=== PATIENT | female | born 1955 | race Caucasian/White ===

== ENCOUNTER 2017-09-25 10:06 | Emergency (ER) | payer BC ==
[2017-09-25] MEDS ORDERED: DEXAMETHASONE 10 MG/ML VIAL PO STA (10:50)
[2017-09-25] MEDS ORDERED: PENICILLIN G BENZATHINE 600,000 UNIT/ML SYRINGE IM STA (10:51)
[2017-09-25] MEDS ORDERED: PENICILLIN G BENZATHINE 600,000 UNIT/ML SYRINGE IM ONE (10:58)
[2017-09-25] MEDS ORDERED: DEXAMETHASONE 10 MG/ML VIAL ONE (10:58)
[2017-09-25] MEDS ORDERED: CHERRY SYRUP 10 ML UDC PO ONE (10:58)
--- NOTE | 2017-09-25 10:59 | ED Physician Documentation ---
History of Present Illness - Stated complaint Stated Complaint: EAR PX/ SWOLLEN LYMPH NODES - Chief complaint Chief Complaint: Heent - History obtained from History obtained from: Patient (Pt is here for evaluation of sinus congestion, sore throat, ear fullness and neck pain. all symptoms started a couple days ago and have worsened. No fevers, painful to swallow, no rash, white patches in the back of her throat, no cough, subjective fevers, no sick contacts.) Review of Systems Constitutional: reports: Fever (subjective). denies: Chills Eyes: denies: Loss of vision Ears: reports: Ear pain. denies: Drainage/discharge Nose: reports: Rhinorrhea / runny nose, Congestion, Sinus pressure / pain Throat: reports: Oral lesions / sores, Sore throat, Swollen tonsils Cardiac: denies: Chest pain / pressure, Palpitations Respiratory: denies: Cough GI: denies: Abdominal Pain, Nausea, Vomiting, Constipation, Diarrhea : denies: Dysuria, Frequency Skin: denies: Rash, Laceration (s) Neurologic: denies: Generalized weakness, Headache PD PAST MEDICAL HISTORY - Past Medical History Past Medical History: Yes GI: Crohn's disease - Past Surgical History Past Surgical History: Yes Ortho: Other - Present Medications Home Medications: Ambulatory Orders Medication Instructions Recorded Confirmed Asathioprine 09/25/17 - Allergies Allergies/Adverse Reactions: Allergies Allergy/AdvReac Type Severity Reaction Status Date / Time Sulfa (Sulfonamide Allergy Unknown Verified 09/25/17 10:14 Antibiotics) - Social History Does the pt smoke?: Yes Smoking Status: Current every day smoker Does the pt drink ETOH?: No Does the pt have substance abuse?: No Substance Use and Type: Marijuana - Immunizations Immunizations are current?: No PD ED PE NORMAL - Vitals Vital signs reviewed: Yes - General General: Alert and oriented X 3 - HEENT HEENT: Atraumatic, Moist mucous membranes. No: Ears normal (bilateral TMs bulging w/o redness), Pharynx benign (bilateral tonsilar exudate. ) - Neck Neck: Supple, no meningeal sign. No: No adenopathy (anterior cervical and submandibular LAD) - Cardiac Cardiac: RRR, No murmur - Respiratory Respiratory: No respiratory distress - Derm Derm: Normal color, No rash - Extremities Extremities: No deformity - Neuro Neuro: Alert and oriented X 3 - Psych Psych: Normal mood, Normal affect Results - Vitals Vitals: Vital Signs - 24 hr 09/25/17 10:12 Temperature 35.0 C L Heart Rate 60 Respiratory 18 Rate Blood Pressure 171/83 H O2 Saturation 99 Oxygen O2 Source Room air PD MEDICAL DECISION MAKING - ED course Complexity details: d/w patient ED course: Discussed symptoms with the patient. because of her hx and PE i offered treatment for strep and she agreed. She was given IM PCN here in the ER. also gave decadron in the ER. No need for IV fluids. She asked for pain medications but I told her that tylenol and motrin is what I would give. We discussed claritin and flonase and she stated that she did not want a rx and would just get them OTC. she was given return precautions. 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 Departure - Departure Disposition: 01 Home, Self Care Clinical Impression: Strep pharyngitis, Sore throat Condition: Good Instructions: ED Strep Pharyngitis Poss Follow-Up: Gadiel Goncalves MD [Primary Care Provider] - Comments: Return to the ER for any new or worsening symptoms.
[2017-09-25 11:22] VITALS: BP 130/79
== END 2017-09-25 11:18 | disposition home or self-care (01) ==
LOC: ED 10:06
DX: J02.0 Streptococcal pharyngitis (principal); K50.90 Crohn's disease, unspecified, without complications; F17.200 Nicotine dependence, unspecified, uncomplicated
CPT/HCPCS: 96372; 99283; A9270

== ENCOUNTER 2019-01-25 09:37 | Outpatient (CLI) | payer BC ==
[2019-01-25 17:22] LABS: BASOPHILS % (AUTO) 0.7 %; EOSINOPHILS # (AUTO) 0.1 10^3/uL (0.0-0.7); HGB - HEMOGLOBIN 13.4 g/dL (12.0-16.0); LYMPHOCYTES # (AUTO) 1.3 10^3/uL (1.5-3.5); LYMPHOCYTES % (AUTO) 20.9 %; MEAN CORPUSCULAR HEMOGLOBIN 29.6 pg (27.0-31.0); MEAN CORPUSCULAR HGB CONC 33.1 g/dL (32.0-36.0); MEAN CORPUSCULAR VOLUME 89.5 fL (81.0-99.0); MEAN PLATELET VOLUME 8.1 fL (7.9-10.8); MONOCYTES # (AUTO) 0.4 10^3/uL (0.0-1.0); MONOCYTES % (AUTO) 6.9 %; NEUTROPHILS # (AUTO) 4.5 10^3/uL (1.5-6.6); NEUTROPHILS % (AUTO) 70.5 %; PLT - PLATELET COUNT 252 10^3/uL (130-450); RED BLOOD COUNT 4.52 10^6/uL (4.20-5.40); WHITE BLOOD COUNT 6.4 x10^3/uL (4.8-10.8)
[2019-01-25 17:54] LABS: ALBUMIN 4.3 g/dL (3.2-5.5); ALBUMIN/GLOBULIN RATIO 1.5 (1.0-2.2); ALKALINE PHOSPHATASE 56 IU/L (42-121); ALT ALANINE AMINOTRANSFERASE 24 IU/L (10-60); AST ASPARTATE AMINOTRANSFERASE 21 IU/L (10-42); BILIRUBIN,TOTAL 0.7 mg/dL (0.2-1.0); BUN - BLOOD UREA NITROGEN 13 mg/dL (6-20); CALCIUM 9.3 mg/dL (8.5-10.3); CARBON DIOXIDE - CO2 22 mmol/L (21-32); CHLORIDE 106 mmol/L (101-111); CHOL/HDL RATIO 5.4 (<4.4); CHOLESTEROL 201 mg/dL; CREATININE 0.7 mg/dL (0.4-1.0); GFR - MDRD 85 (>89); GLUCOSE 114 mg/dL (70-100); HDL CHOLESTEROL 37 mg/dL; LDL CHOLESTEROL,CALCULATED 135 mg/dL; LDL/HDL RATIO 3.6 (<4.4); SODIUM 138 mmol/L (135-145); TOTAL PROTEIN 7.2 g/dL (6.7-8.2); VLDL CHOLESTEROL 29 mg/dL
[2019-01-25 18:24] LABS: HB2 TOTAL 14.6 g/dL; HEMOGLOBIN A1C 0.68 g/dL; HEMOGLOBIN A1C % 6.4 % (4.6-6.2)
== END 2019-01-25 09:38 | disposition home or self-care (01) ==
LOC: LAB.F 09:37
PROVIDERS: ATTEND Specialist
DX: I10 Essential (primary) hypertension (principal); Z12.11 Encounter for screening for malignant neoplasm of colon; Z13.6 Encounter for screening for cardiovascular disorders; Z13.1 Encounter for screening for diabetes mellitus
CPT/HCPCS: 36415; 80053; 80061; 83036; 83721; 85025

== ENCOUNTER 2019-02-01 11:53 | Outpatient (CLI) | payer BC ==
--- NOTE | 2019-02-02 09:24 | Mammography Report ---
Reason: SCREENING MAMMO Procedure Date: 02/01/2019 Accession Number: [id number] / [id number] Procedure: MGN - Screening Mammo Dig Bilat CPT Code: FULL RESULT: EXAM: Screening Mammo Dig Bilat DATE: 02/01/2019 12:37 PM CLINICAL HISTORY: Screening encounter. History of nulliparity. TECHNIQUE: Bilateral CC and MLO views were obtained. COMPARISON: 09/11/2016 through 02/16/2011. FINDINGS: The breasts demonstrate diffuse fatty replacement bilaterally. No suspicious masses, clustered microcalcifications, or regions of architectural distortion are identified. IMPRESSION: Negative examination RECOMMENDATION: Routine annual screening unless otherwise clinically indicated. BIRADS CATEGORY 1: Negative STANDARD QUALIFYING STATEMENTS: 1. This examination was reviewed with the aid of Computer-Aided Detection (CAD). 2. A negative or benign imaging report should not delay biopsy if clinically suspicious findings are present. Consider surgical consultation if warrented. More than 5% of cancers are not identified by imaging. 3. Dense breasts may obscure an underlying neoplasm.
== END 2019-02-01 11:54 | disposition home or self-care (01) ==
LOC: DI.N 11:53
DX: Z12.31 Encounter for screening mammogram for malignant neoplasm of breast (principal)
CPT/HCPCS: 77067

== ENCOUNTER 2019-02-03 13:00 | Outpatient (CLI) | payer BC ==
--- NOTE | 2019-02-06 11:09 | DEXA Report ---
Reason: POST MENOPAUSL Procedure Date: 02/03/2019 Accession Number: [id number] / [id number] Procedure: DEX - Dexa Spine and/or Hip CPT Code: FULL RESULT: EXAM: Dexa Spine and/or Hip DATE: 02/03/2019 1:42 PM CLINICAL HISTORY: POST MENOPAUSAL TECHNIQUE: Dual energy x-ray absorptiometry (DXA) was performed on a [employer] System. Regions measured are the AP Spine, femoral neck, and if needed forearm. COMPARISON: None. In accordance with the International Society for Clinical Densitometry (ISCD) guidelines, data from previous exams may be reanalyzed using current recommendations and techniques. This is done to allow a more accurate basis for comparison with the current study. FINDINGS: The data for the lumbar spine is as follows: BMD (g/cm/cm) T-SCORE Z-SCORE REGION L1 0.624 -4.2 -4.1 L2 0.910 -2.4 -2.3 L3 0.909 -2.4 -2.3 L4 0.886 -2.6 -2.5 TOTAL 0.843 -2.8 -2.7 NOTE: All evaluable vertebrae are used for classification The data for the hip is as follows: BMD (g/cm/cm) T-SCORE Z-SCORE REGION Neck 0.847 -1.4 -0.8 TOTAL 0.845 -1.3 -1.1 NOTE: The femoral neck or total proximal femur, whichever is lowest, is used for classification. IMPRESSION: THE WHO CLASSIFICATION BASED ON THE INTERNATIONAL REFERENCE STANDARD IS OSTEOPOROSIS. THE FRACTURE RISK IS HIGH. RECOMMENDATION: Patients with diagnosis of osteoporosis or osteopenia should have regular bone mineral density assessment. For those eligible for Medicare, routine testing is allowed once every 2 years. Testing frequency can be increased for patients who have rapidly progressing disease or for those who are receiving medical therapy to restore bone mass. COMMENT: World Health Organization (WHO) definitions for osteoporosis and osteopenia: NORMAL BMD: T-score at -1.0 or higher, fracture risk is low OSTEOPENIA BMD: T-score between -1.0 and -2.5, fracture risk is increased. OSTEOPOROSIS BMD: T-score at -2.5 or lower, fracture risk is high. National Osteoporosis Foundation recommends: 1. Obtain adequate dietary calcium (at least 1200 mg per day) and vitamin D (400-800 international units per day). 2. Participate, as appropriate, in regular weightbearing and muscle-strengthening exercise. 3. Avoid tobacco use and reduce alcohol and caffeine intake. 4. For more detailed information see the website at www.NOF.org.
== END 2019-02-03 13:01 | disposition home or self-care (01) ==
LOC: DI 13:00
PROVIDERS: ATTEND Specialist
DX: Z13.820 Encounter for screening for osteoporosis (principal); M81.0 Age-related osteoporosis without current pathological fracture
CPT/HCPCS: 77080

== ENCOUNTER 2019-05-22 09:40 | Outpatient (CLI) | payer BC ==
[2019-05-24 23:01] LABS: ALBUMIN 4.3 g/dL (3.8-4.8); ALPHA 1 GLOBULIN 0.3 g/dL (0.2-0.3); ALPHA 2 GLOBULIN 0.8 g/dL (0.5-0.9); BETA 1 GLOBULIN 0.4 g/dL (0.4-0.6); BETA 2 GLOBULIN 0.4 g/dL (0.2-0.5); GAMMA GLOBULIN 0.7 g/dL (0.8-1.7)
== END 2019-05-22 09:41 | disposition home or self-care (01) ==
LOC: LAB.S 09:40
PROVIDERS: ATTEND Internal Medicine Rheumatology
DX: E55.9 Vitamin D deficiency, unspecified (principal); Z87.81 Personal history of (healed) traumatic fracture
CPT/HCPCS: 36415; 83970; 84155; 84165

== ENCOUNTER 2019-06-14 09:37 | Outpatient (CLI) | payer BC ==
[2019-06-15 11:23] LABS: HEPATITIS C ANTIBODY NON-REACTIVE (NON-REACTIVE)
[2019-06-15 11:24] LABS: HEPATITIS B SURFACE ANTIGEN NON-REACTIVE (NON-REACTIVE)
== END 2019-06-14 09:38 | disposition home or self-care (01) ==
LOC: LAB 09:37
PROVIDERS: ATTEND Internal Medicine Gastroenterology
DX: K50.80 Crohn's disease of both small and large intestine without complications (principal)
CPT/HCPCS: 36415; 81599; 86480; 86803; 87340

== ENCOUNTER 2019-08-08 12:19 | Outpatient (CLI) | payer BC | END 2019-08-08 12:20 | disposition home or self-care (01) | LOC: LAB 12:19 | PROVIDERS: ATTEND Internal Medicine Rheumatology | DX: M81.0 Age-related osteoporosis without current pathological fracture (principal); Z87.81 Personal history of (healed) traumatic fracture; E55.9 Vitamin D deficiency, unspecified | CPT/HCPCS: 36415; 82306 ==

== ENCOUNTER 2020-01-15 08:00 | Outpatient (CLI) | payer BC | END 2020-01-15 08:01 | disposition home or self-care (01) | LOC: LAB.R 08:00 | PROVIDERS: ATTEND Internal Medicine Gastroenterology | DX: K50.80 Crohn's disease of both small and large intestine without complications (principal); R19.7 Diarrhea, unspecified | CPT/HCPCS: 83993 ==

== ENCOUNTER 2020-01-15 12:01 | Outpatient (CLI) | payer BC ==
[2020-01-15 12:24] LABS: BASOPHILS % (AUTO) 0.4 %; EOSINOPHILS # (AUTO) 0.1 10^3/uL (0.0-0.7); EOSINOPHILS % (AUTO) 1.3 %; HGB - HEMOGLOBIN 14.8 g/dL (12.0-16.0); LYMPHOCYTES # (AUTO) 1.7 10^3/uL (1.5-3.5); LYMPHOCYTES % (AUTO) 20.2 %; MEAN CORPUSCULAR HEMOGLOBIN 32.2 pg (27.0-31.0); MEAN CORPUSCULAR HGB CONC 33.5 g/dL (32.0-36.0); MEAN CORPUSCULAR VOLUME 96.1 fL (81.0-99.0); MEAN PLATELET VOLUME 9.2 fL (7.9-10.8); MONOCYTES # (AUTO) 0.6 10^3/uL (0.0-1.0); MONOCYTES % (AUTO) 7.3 %; NEUTROPHILS # (AUTO) 5.8 10^3/uL (1.5-6.6); NEUTROPHILS % (AUTO) 70.6 %; PLT - PLATELET COUNT 193 10^3/uL (130-450); RED CELL DISTRIBUTION WIDTH 13.1 % (12.0-15.0); WHITE BLOOD COUNT 8.3 x10^3/uL (4.8-10.8)
[2020-01-15 12:45] LABS: ALBUMIN 4.4 g/dL (3.2-5.5); ALBUMIN/GLOBULIN RATIO 1.4 (1.0-2.2); BILIRUBIN,TOTAL 0.8 mg/dL (0.2-1.0); CALCIUM 10.2 mg/dL (8.5-10.3); CREATININE 0.6 mg/dL (0.4-1.0); TOTAL PROTEIN 7.5 g/dL (6.7-8.2)
== END 2020-01-15 12:02 | disposition home or self-care (01) ==
LOC: LAB 12:01
PROVIDERS: ATTEND Internal Medicine Gastroenterology
DX: K50.80 Crohn's disease of both small and large intestine without complications (principal); R19.7 Diarrhea, unspecified
CPT/HCPCS: 36415; 80053; 83993; 85025

== ENCOUNTER 2020-03-26 10:42 | Outpatient (CLI) | payer BC ==
[2020-03-26 11:28] LABS: BASOPHILS % (AUTO) 0.7 %; EOSINOPHILS # (AUTO) 0.1 10^3/uL (0.0-0.7); EOSINOPHILS % (AUTO) 1.3 %; HGB - HEMOGLOBIN 14.1 g/dL (12.0-16.0); LYMPHOCYTES # (AUTO) 1.4 10^3/uL (1.5-3.5); MEAN CORPUSCULAR HEMOGLOBIN 31.1 pg (27.0-31.0); MEAN CORPUSCULAR HGB CONC 32.7 g/dL (32.0-36.0); MEAN CORPUSCULAR VOLUME 95.1 fL (81.0-99.0); MEAN PLATELET VOLUME 9.4 fL (7.9-10.8); MONOCYTES # (AUTO) 0.4 10^3/uL (0.0-1.0); MONOCYTES % (AUTO) 7.2 %; NEUTROPHILS # (AUTO) 3.5 10^3/uL (1.5-6.6); NEUTROPHILS % (AUTO) 65.6 %; PLT - PLATELET COUNT 217 10^3/uL (130-450); RED BLOOD COUNT 4.53 10^6/uL (4.20-5.40); RED CELL DISTRIBUTION WIDTH 13.4 % (12.0-15.0); WHITE BLOOD COUNT 5.4 x10^3/uL (4.8-10.8)
== END 2020-03-26 10:43 | disposition home or self-care (01) ==
LOC: LAB 10:42
PROVIDERS: ATTEND Internal Medicine Gastroenterology
DX: K50.80 Crohn's disease of both small and large intestine without complications (principal)
CPT/HCPCS: 36415; 82306; 85025

== ENCOUNTER 2020-04-24 13:50 | Outpatient (CLI) | payer BC | END 2020-04-24 13:51 | disposition home or self-care (01) | LOC: LAB.S 13:50 | PROVIDERS: ATTEND Internal Medicine Rheumatology | DX: M81.0 Age-related osteoporosis without current pathological fracture (principal) | CPT/HCPCS: 36415; 82306 ==

== ENCOUNTER 2021-04-15 08:00 | Outpatient (CLI) | payer BC | END 2021-04-15 08:01 | disposition home or self-care (01) | LOC: LAB.N 08:00 | PROVIDERS: ATTEND Family Medicine | DX: R11.0 Nausea (principal); Z20.822 Contact with and (suspected) exposure to COVID-19 ==

== ENCOUNTER 2021-11-21 12:50 | Outpatient (CLI) | payer BC ==
--- NOTE | 2021-11-24 09:00 | Mammography Report ---
BILATERAL DIGITAL SCREENING MAMMOGRAM 3D/2D: 11/21/2021 CLINICAL: Routine screening. Comparison is made to exams dated: 02/01/2019 mammogram, 09/11/2016 mammogram, and 04/11/2015 mammogram - [facility]. The tissue of both breasts is predominantly fatty. No significant masses, calcifications, or other findings are seen in either breast. There has been no significant interval change. IMPRESSION: NEGATIVE There is no mammographic evidence of malignancy. A 1 year screening mammogram is recommended. This exam was interpreted at Station ID: [id number]. NOTE: For mammograms, a report in lay terms will be sent to the patient. Approximately 15% of breast malignancies will not be visualized mammographically. In the management of a palpable breast mass, a negative mammogram must not discourage biopsy of a clinically suspicious lesion. Electronically Signed By: Zaina osullivan/penrad:11/21/2021 15:43:58 ACR BI-RADS Category 1: Negative 3341F PARENCHYMAL PATTERN: (F) - The breast(s) demonstrate(s) diffuse fatty replacement. BI-RADS CATEGORY: (1) - 1 RECOMMENDATION: (ANNUAL) - Recommend routine annual screening mammography. [id number] 1 year screening LATERALITY: (B)
== END 2021-11-21 12:51 | disposition home or self-care (01) ==
LOC: DI 12:50
PROVIDERS: ATTEND Nurse Practitioner Family
DX: Z12.31 Encounter for screening mammogram for malignant neoplasm of breast (principal)

== ENCOUNTER 2021-11-21 12:53 | Outpatient (CLI) | payer BC, OTHER ==
--- NOTE | 2021-11-21 14:19 | CT Report ---
PROCEDURE: CHEST WO INDICATIONS: CHRONIC COUGH, OSTEOPOROSIS TECHNIQUE: Noncontrast 1mm axial images were acquired from the pulmonary apices to the posterior costophrenic an gles. Axial 5 mm soft tissue kernel reconstructions were performed as well as 8 mm axial MIP and cor onal and sagittal 5 mm reformations. For radiation dose reduction, the following was used: automate d exposure control, adjustment of mA and/or kV according to patient size. COMPARISON: September 11, 2016. FINDINGS: Thyroid: Homogeneous. Vasculature: Normal size and contour. Heart: No cardiomegaly or pericardial effusion. Mediastinum/radha: No pathologically enlarged lymph nodes by size criteria. Lung/pleura: A band like density seen in the superior aspect of the right upper lobe with associated bronchiectasis, which may reflect a post infectious or inflammatory process (series 4, image 144). The lungs are otherwise well aerated. No suspicious pulmonary nodule or mass. No pleural effusion or pneumothorax. Trachea: Patent. Upper abdomen: No acute abnormality. Thickening of the left adrenal gland, which may reflect hyperpla jose luis. Bones: No significant abnormality. Chest wall: No significant abnormality. IMPRESSION: 1.Band like density in the superior aspect of the right upper lobe with more prominent bronchiectasis , concerning for an infectious or inflammatory process. A neoplastic process is felt to be less likel y. Consider 3-6 month follow-up to ensure stability. Reviewed by: Gualberto Wang MD on 11/21/2021 2:17 PM PST Approved by: Gualberto Wang MD on 11/21/2021 2:17 PM PST Station ID: [id number]
--- NOTE | 2021-11-21 16:08 | DEXA Report ---
PROCEDURE: Dexa Spine and/or Hip INDICATIONS: CHRONIC COUGH, OSTEOPOROSIS TECHNIQUE: Dual energy x-ray absorptiometry (DXA) was performed on a [employer] System. Regions measur ed are the AP Spine, femoral neck, and if needed forearm. COMPARISON: None. FINDINGS: Lumbar Spine: Bone Mineral Density 0.858 g/cm/cm,T score -2.7, -2.8 Left Hip: Bone Mineral Density 0.840 g/cm/cm,T score -1.3, -1.3 Left Femoral Neck: Bone Mineral Density 0.865 g/cm/cm, T score -1.2, -1.4 (T score greater or equal to -1.0: NORMAL) (T score from -1.1 to -2.4: OSTEOPENIA) (T score less than or equal to -2.5 to: OSTEOPOROSIS) Impression: Minimal osteopenia within the hip and femoral neck minimally improved in the femoral neck . Persistent appearance of mild osteoporosis in the lumbar spine, relatively stable. Patients with diagnosis of osteoporosis or osteopenia should have regular bone mineral density assess ment. For those eligible for Medicare, routine testing is allowed once every 2 years. Testing frequ ency can be increased for patients who have rapidly progressing disease or for those who are receivin g medical therapy to restore bone mass. Reviewed by: Mary Alice Walls MD on 11/21/2021 4:06 PM PST Approved by: Mary Alice Walls MD on 11/21/2021 4:06 PM PST Station ID: [id number]
--- NOTE | 2021-11-21 17:27 | XRAY Report ---
PROCEDURE: Chest 2 View X-Ray INDICATIONS: CHRONIC COUGH, OSTEOPOROSIS TECHNIQUE: 2 view(s) of the chest. COMPARISON: None. FINDINGS: Surgical changes and devices: None. Lungs and pleura: No pleural effusions or pneumothorax. Lungs are clear. Mediastinum: Mediastinal contours are normal. Heart size is normal. Bones and chest wall: No suspicious bony abnormalities. Soft tissues appear unremarkable. IMPRESSION: No evidence acute pulmonary process. Reviewed by: Misael Chou MD on 11/21/2021 5:25 PM PST Approved by: Misael Chou MD on 11/21/2021 5:25 PM PST Station ID: [id number]
== END 2021-11-21 12:54 | disposition home or self-care (01) ==
LOC: DI 12:53
PROVIDERS: ATTEND Nurse Practitioner Family
DX: R05.3 Chronic cough (principal); J47.9 Bronchiectasis, uncomplicated; R91.8 Other nonspecific abnormal finding of lung field; M81.0 Age-related osteoporosis without current pathological fracture

== ENCOUNTER 2021-11-21 13:54 | Emergency (ER) | payer BC, OTHER ==
[2021-11-21 14:32] VITALS: BP 140/92
--- NOTE | 2021-11-21 15:27 | ED Physician Documentation ---
PD HPI URI - Stated complaint Stated Complaint: RT SIDE RIB PX - Chief complaint Chief Complaint: Resp - History obtained from History obtained from: Patient - History of Present Illness Timing - onset: How many days ago (having increasing right pleuritic chest pain the past few days, associated with purulent cough. Had had URI) Timing duration: Days (few) Timing details: Gradual onset, Still present, Waxing and waning Associated symptoms: Fever (week or so ago, and was improving, now with worse cough and malaise.), Chills, Productive cough. No: Sore throat Contributing factors: No: Unimmunized, COPD / asthma Similar symptoms before: Has not had sx before Recently seen: Clinic (seen outpatient for followup of prior cancer and had outpt chest CT ordered already, and got that today.) Review of Systems Constitutional: reports: Chills, Myalgias Nose: denies: Rhinorrhea / runny nose, Congestion Throat: denies: Sore throat Cardiac: reports: Chest pain / pressure. denies: Palpitations, Pedal edema, Calf pain Respiratory: reports: Dyspnea, Cough GI: denies: Nausea, Vomiting, Diarrhea Neurologic: reports: Generalized weakness. denies: Focal weakness, Numbness, Near syncope PD PAST MEDICAL HISTORY - Past Medical History Cardiovascular: None Respiratory: None Endocrine/Autoimmune: None GI: Crohn's disease - Past Surgical History Past Surgical History: Yes Ortho: Other - Present Medications Home Medications: Ambulatory Orders Medication Instructions Recorded Confirmed Asathioprine 09/25/17 Acetaminophen [Acetaminophen Extra 500 mg PO QID PRN #50 tablet 11/21/21 Strength] Albuterol Sulf [Ventolin Hfa 2 - 3 puffs INH QID 10 Days #1 11/21/21 Inhaler] inhaler Amox/Clav 875/125 [Augmentin] 1 each PO Q12H #10 tablet 11/21/21 oxyCODONE [Roxicodone] 5 mg PO Q6H PRN #18 tablet 11/21/21 - Allergies Allergies/Adverse Reactions: Allergies Allergy/AdvReac Type Severity Reaction Status Date / Time Sulfa (Sulfonamide Allergy Unknown Verified 09/25/17 10:14 Antibiotics) - Social History Does the pt smoke?: Yes Smoking Status: Current every day smoker Does the pt drink ETOH?: No Does the pt have substance abuse?: No - Immunizations Immunizations are current?: No PD ED PE NORMAL - Vitals Vital signs reviewed: Yes - General General: Alert and oriented X 3, Well developed/nourished, Other (appears uncomfortable with deep breathing and cough. ) - HEENT HEENT: Pharynx benign - Neck Neck: Supple, no meningeal sign, No adenopathy - Cardiac Cardiac: RRR, No murmur - Respiratory Respiratory: Clear bilaterally, Other (no chestwall tenderness nor rash. ) - Abdomen Abdomen: Soft, Non tender - Derm Derm: Normal color, Warm and dry, No rash - Extremities Extremities: Normal ROM s pain, No edema, No calf tenderness / cord - Neuro Neuro: Alert and oriented X 3, No motor deficit, Normal speech Results - Vitals Vitals: Oxygen O2 Source Room air - Rads (name of study) chest CT Radiology: Prelim report reviewed (bandlike infiltrate right upper lobe c/w p neumonia. ), See rad report PD MEDICAL DECISION MAKING - ED course Complexity details: reviewed results (She had just had outpatient chest xray and chest CT today prior to coming to ER. This showed normal chest xray, but bandlike infiltrate right upper lobe c/w pneumonia.), considered differential, d/w patient Departure - Departure Disposition: 01 Home, Self Care Clinical Impression: Acute pneumonia, Pleuritic chest pain Condition: Stable Record reviewed to determine appropriate education?: Yes Instructions: ED Chest Pain Pleurisy, ED Pneumonia Adult Follow-Up: MACARENA LEDEZMA ARNP [Primary Care Provider] - Prescriptions: Acetaminophen [Acetaminophen Extra Strength] 500 mg PO QID PRN #50 tablet PRN Reason: Pain Amox/Clav 875/125 [Augmentin] 1 each PO Q12H #10 tablet oxyCODONE [Roxicodone] 5 mg PO Q6H PRN #18 tablet PRN Reason: Pain Albuterol Sulf [Ventolin Hfa Inhaler] 2 - 3 puffs INH QID 10 Days #1 inhaler Comments: Chest x-ray and CT scan done earlier today showed a small bandlike infiltrate consistent with possible pneumonia on the right upper lobe. This corresponds to near the area that you are hurting. There are no signs of collapsed lung nor rib fractures nor tumors. Presume you are having pain related to inflammation on the surface of the lung (pleurisy). Given the radiology finding in the course of your symptoms, the concern would be for bacterial infection developing at this point. Augmentin antibiotic twice daily for 5 days for potential bacterial infection. Use your steroid burst that you have at home starting tomorrow. You are given an oral dose of a steroid today here. Use Tylenol 500 mg 4 times a day regularly for the next 5 to 7 days. To that add oxycodone every 6 hours if needed for pain. Also use an albuterol inhaler 2 to 3 puffs 4 times a day for the next several days to week to ensure good airflow through the bronchioles and lungs. I transmitted your prescriptions to [facility] in [place]. I am prescribing a short course of narcotic pain medication for you. These are potentially dangerous and addictive medications that should be used carefully. These medications may constipate you. Take an weiz-rpy-qdikgvv stool softener such as docusate twice daily with plenty of water while taking these medications. If you go 24 hours without a bowel movement, take sxxu-[id number]-[id number] MiraLAX, per package instructions. Do not drink or drive while taking these medications. If you received narcotic or sedating medications while in the emergency department do not drive for 24 hours. Store this medication in a safe, secure place and out of reach of children. It is a violation of federal law to give or sell this medication to another person or to use in a manner other than prescribed. The ED will not refill narcotic prescriptions, including prescriptions lost or stolen. You can dispose of unwanted medications at the [facility]'s office or at several pharmacies such as [facility]. Discharge Date/Time: 11/21/21 16:10
[2021-11-21] MEDS ORDERED: CHERRY SYRUP 10 ML UDC PO ONE (15:55)
[2021-11-21] MEDS ORDERED: oxyCODONE 5 MG TABLET PO STA (15:55)
[2021-11-21] MEDS ORDERED: AMOX/CLAV 875 MG/125 MG TABLET PO STA (15:55)
[2021-11-21] MEDS ORDERED: DEXAMETHASONE 10 MG/ML VIAL PO STA (15:55)
[2021-11-21] MEDS ORDERED: ACETAMINOPHEN 325 MG TABLET PO STA (15:55)
== END 2021-11-21 16:10 | disposition home or self-care (01) ==
LOC: ED 13:54
DX: J18.9 Pneumonia, unspecified organism (principal); F17.200 Nicotine dependence, unspecified, uncomplicated; R05.3 Chronic cough; J47.9 Bronchiectasis, uncomplicated; R91.8 Other nonspecific abnormal finding of lung field; M81.0 Age-related osteoporosis without current pathological fracture
CPT/HCPCS: 71046; 71250; 77080; 99284; A9270

== ENCOUNTER 2021-11-25 08:00 | Outpatient (CLI) | payer BC ==
[2021-11-25 20:08] LABS: BASOPHILS % (AUTO) 0.3 %; EOSINOPHILS % (AUTO) 0.2 %; HCT - HEMATOCRIT 41.9 % (37.0-47.0); HGB - HEMOGLOBIN 14.2 g/dL (12.0-16.0); LYMPHOCYTES # (AUTO) 0.8 10^3/uL (1.5-3.5); LYMPHOCYTES % (AUTO) 13.9 %; MEAN CORPUSCULAR HGB CONC 33.9 g/dL (32.0-36.0); MEAN CORPUSCULAR VOLUME 94.4 fL (81.0-99.0); MONOCYTES # (AUTO) 0.2 10^3/uL (0.0-1.0); NEUTROPHILS # (AUTO) 4.9 10^3/uL (1.5-6.6); NEUTROPHILS % (AUTO) 81.3 %; PLT - PLATELET COUNT 327 10^3/uL (130-450); RED BLOOD COUNT 4.44 10^6/uL (4.20-5.40); RED CELL DISTRIBUTION WIDTH 12.5 % (12.0-15.0)
[2021-11-25 20:24] LABS: CALCIUM 9.8 mg/dL (8.5-10.3); CREATININE 0.7 mg/dL (0.4-1.0); POTASSIUM 4.4 mmol/L (3.5-5.0)
== END 2021-11-25 23:59 | disposition home or self-care (01) ==
LOC: LAB.S 08:00
PROVIDERS: ATTEND Emergency Medicine
DX: R06.00 Dyspnea, unspecified (principal)
CPT/HCPCS: 36415; 80048; 83880; 85025; 85379

== ENCOUNTER 2022-03-28 10:30 | Outpatient (CLI) | payer BC ==
[2022-03-28] MEDS ORDERED: IOVERSOL 320 100 ML VIAL IVP ONE ×2 (10:46→11:31)
--- NOTE | 2022-03-28 17:14 | CT Report ---
PROCEDURE: CHEST W INDICATIONS: ABN CHEST CT CONTRAST: IV CONTRAST: Optiray 320 ml: 100 PO CONTRAST: *NO PO CONTRAST TECHNIQUE: After the administration of intravenous contrast, 1 mm axial images were acquired from the pulmonary apices through the posterior costophrenic angles. Axial 5 mm soft tissue kernel reconstructions were performed as well as 8 mm axial MIP and coronal and sagittal 5 mm reformations. For radiation dose reduction, the following was used: automated exposure control, adjustment of mA and/or kV according to patient size. COMPARISON: 11/21/2021. FINDINGS: Image quality: Excellent. Lungs and pleura: Unchanged 2 mm subpleural right upper lobe pulmonary nodule, current image 88/4. Again noted is a bandlike process in the superior segment of the right lower lobe. There is a density surrounding bronchi, which are dilated. The appearance is nonspecific. Adenocarcinoma in situ can iniguez ve this appearance, and skin chronic scarring. It may be minimally increased in size, as is suggested when comparing current image 142/4 and previous image 150/4. It has somewhat spiculated margins. Ove rall, it measures approximately 1.8 x 5.1 cm on image 134/4. No acute air space opacities. No pleura l effusions or pneumothorax. Central and peripheral airways are patent and normal in caliber. Mediastinum: Heart size is normal. No pericardial effusion. No mediastinal or hilar adenopathy by size criteria. Thoracic aorta and central pulmonary arteries are normal in size. Esophagus is marga l in caliber. No hiatal hernia. Bones and chest wall: No suspicious bony lesions. No vertebral body compression fractures. No axil daniela or supraclavicular adenopathy by size criteria. The thyroid is normal in size and there are no incidental findings.. Abdomen: Visualized upper abdominal solid organs appear normal. Upper abdominal bowel loops are nor mal in caliber. IMPRESSION: A nonspecific process traveling along bronchi in the superior segment left lower lobe, which can be a consolidative density or scarring, appears to possibly be slightly increased in size. The imaging ch aracteristics can be seen in adenocarcinoma in situ. Comment: Recommend PET/CT. If PET CT demonstrates increased FDG activity, this lesion may be amenable to bronchoscopic biopsy. Alternatively, this area could be biopsied percutaneously under CT guidance if bronchoscopy is nondiagnostic. CLINICAL RECOMMENDATION STATEMENTS: In patients <35 years with an ITN detected on CT, MRI, or extrathyroidal ultrasound, the Committee re commends further evaluation with dedicated thyroid ultrasound if the nodule is "e1 cm and has no susp icious imaging features, and if the patient has normal life expectancy. In patients "e35 years with an ITN detected on CT, MRI, or extrathyroidal ultrasound, the Committee r ecommends further evaluation with dedicated thyroid ultrasound if the nodule is "e1.5 cm and has no s uspicious imaging features, and if the patient has normal life expectancy. (ACR, 2014) Reviewed by: Misael Chou MD on 03/28/2022 5:12 PM PDT Approved by: Misael Chou MD on 03/28/2022 5:12 PM PDT Station ID: [id number]
== END 2022-03-28 10:31 | disposition home or self-care (01) ==
LOC: DI 10:30
PROVIDERS: ATTEND Nurse Practitioner
DX: R91.8 Other nonspecific abnormal finding of lung field (principal)
CPT/HCPCS: 71260; Q9967

== ENCOUNTER 2023-09-19 18:50 | Outpatient (CLI) | payer MEDICARE, OTHER | END 2023-09-19 18:51 | disposition EMS.NT | LOC: EMS 18:50 | DX: R40.4 Transient alteration of awareness (principal) ==